=== PATIENT | female | born 1985 | race Caucasian/White ===

== ENCOUNTER 2016-05-18 10:59 | Day surgery (SDC) | payer OTHER ==
[~2016-05-18] VITALS: Ht 170.2 cm; Wt 98.9 kg
[~2016-05-18 10:59] MED LIST: HYDR-3989 PO; LEVO50TA11 PO; LIDOCAINE 1% (10mg/ml) 2ml SDV INJ ONE; LR 1,000 ML IV SCH; ONDA4TAB10 PO; [UNRECOGNIZED DRUG - CODE] PO
--- OUTSIDE RECORDS SUMMARY | 2016-05-18 11:04 | XMS REPORT | Summary of Care ---
Author Author Logan Beach D.O. Organization Unknown Address [address], [place] [id number] Phone Unavailable Care Team Providers Care Manager Product Design Name Role Phone Logan Beach D.O. Unavailable Unavailable [id number] LABORER [employer] BARN, Crystal Unavailable Unavailable Logan Beach PP Unavailable Unavailable Unavailable Functional Status Functional Status Health Issues* Name Dates Details Functional status health issues are not documented Status: Cognitive Status Health Issues* Name Dates Details Cognitive status health issues are not documented Status: Problems Name Dates Details Examination for school or camp (V70.3, Z02.9) Status: Active Hypothyroidism (244.9, E03.9) Status: Active Conjunctivitis of both eyes (372.30, H10.9) Status: Active Abnormal glucose (790.29, R73.09) Status: Active Migraine (346.90, G43.909) Status: Active Acute bronchitis (466.0, J20.9) Status: Active Acute sinusitis (461.9, J01.90) Status: Active Acne (706.1, L70.9) Status: Active control counseling (V25.09, Z30.9) Status: Active Dysfunctional uterine bleeding (626.8, N93.8) Status: Active Diverticulosis of large intestine without hemorrhage (562.10, K57.30) Status: Active Bloody stools (578.1, K92.1) Status: Active Colon cancer screening (V76.51, Z12.11) Status: Active Lower Back Pain Chronic Status: Active Loss Of Hair From Head Status: Active Obesity (278.00, E66.9) Status: Active Occult blood in stools (792.1, R19.5) Status: Active Acute otitis media (382.9, H66.90) Status: Active Medications Name Dates Details Fluticasone Propionate 50 MCG/ACT Nasal Suspension USE 1 TO 2 SPRAYS IN EACH NOSTRIL ONCE DAILY. Quantity: 1 Brookh-Bel Rinaldi LABORER CAR BARN* Started 01-Mar-2014 Batnpy24 GM Bottle Lomedia 24 FE 1-20 MG-MCG(24) Oral Tablet TAKE 1 TABLET DAILY. * Quantity: 1 Refills: 3 Logan Beach D.O.* Started 24-Apr-2014 [id number] Tablet Disp Pack (3 Disp Packs) Amoxicillin 500 MG Oral Capsule Take 1 capsule twice daily * Quantity: 60 Refills: 5 Logan Beach D.O.* Started ActivePhentermine HCl - 37.5 MG Oral Capsule TAKE 1 CAPSULE DAILY.WT LOSS * Quantity: 30 Refills: 0 Logan Beach D.O.* Started ActiveSenna S 8.6-50 MG Oral Tablet TAKE 1 TABLET Bedtime * Quantity: 30 Refills: 0 Logan Beach D.O.* Started 13-Nov-2014 Active Allergies and Adverse Reactions Name Dates Details No Known Drug Allergies Status: Active Past Medical History Name Dates Details History of acute sinusitis (V12.69, Z87.09) Status: Resolved Procedures Procedure Dates Details Procedures not documented Immunization Name Dates Details DTP Administered on:1986 OPV Administered on:1986 OPV Administered on:1986 DTP Administered on:1986 DTP Administered on: OPV Administered on: MMR Administered on:03-May-1987 HIB Administered on:07-May-1988 OPV Administered on:07-May-1988 DTaP Administered on:07-May-1988 OPV Administered on: DTaP Administered on: MMR Administered on: Hepatitis B Administered on:15-Sep-1992 Hepatitis B Administered on:15-Oct-1992 Hepatitis B Administered on: PPD Administered on: Influenza Administered on:20-Nov-1995 DT Administered on: PPD Lot #: [id number] Administered on:13-Jul-2011 Tdap (Adacel) Administered on:13-Jul-2011 Social History Name Dates Details Smoking Status* Never smoker Vital Signs Date Test Result Details No Known Vitals to report Results Date Description Value Details Results not documented Plan of Care Planned Observations* Name Dates Details Planned Goals not documented Goal Planned Encounters* Appointment; Provider: Feliciano Stewart On 13-Dec-2012 13:30 Instructions * Instructions not documented Encounters Appointment; Mor Lawton Encounter Diagnosis: Problem not documented On 28-Nov-2014 09:00 Appointment; Cecy Linton Encounter Diagnosis: Problem not documented On 28-Nov-2014 08:30 Appointment; Logan Beach Encounter Diagnosis: Problem not documented On 26-Nov-2014 07:45 Appointment; Logan Beach Encounter Diagnosis: Problem not documented On 13-Nov-2014 15:15 Appointment; Logan Beach Encounter Diagnosis: Problem not documented On 23-Oct-2014 13:00 Appointment; Logan Beach Encounter Diagnosis: Problem not documented On 18-Sep-2014 07:30 Appointment; Logan Beach Encounter Diagnosis: Problem not documented On 07:00 Appointment; Logan Beach Encounter Diagnosis: Problem not documented On 13:00 Appointment; Logan Beach Encounter Diagnosis: Problem not documented On 24-Apr-2014 13:15 Appointment; Bel Nolan Encounter Diagnosis: Problem not documented On 16-Apr-2014 12:05 Appointment; Bel Nolan Encounter Diagnosis: Problem not documented On 01-Mar-2014 13:35 Appointment; Logan Beach Encounter Diagnosis: Problem not documented On 21-Nov-2013 10:15 Appointment; Feliciano Stewart Encounter Diagnosis: Problem not documented On 26-Sep-2013 09:45 Appointment; Dana James Encounter Diagnosis: Problem not documented On 26-Sep-2013 09:45 Appointment; Logan Beach Encounter Diagnosis: Problem not documented On 19-Sep-2013 09:45
--- OUTSIDE RECORDS SUMMARY | 2016-05-18 11:05 | XMS REPORT | Summary of Care ---
Author Author Logan Beach D.O. Organization Unknown Address [address], [place] [id number] Phone Unavailable Care Team Providers Care Pyridine Recovery Operator Name Role Phone Logan Beach D.O. Unavailable Unavailable Logan eBach PP Unavailable Unavailable Unavailable Functional Status Functional Status Health Issues* Name Dates Details Functional status health issues are not documented Status: Cognitive Status Health Issues* Name Dates Details Cognitive status health issues are not documented Status: Problems Name Dates Details Loss Of Hair From Head Status: Active Lower Back Pain Chronic Status: Active Examination for school or camp (V70.3) Status: Active Hypothyroidism (244.9, E03.9) Status: Active Conjunctivitis of both eyes (372.30, H10.9) Status: Active Abnormal glucose (790.29, R73.09) Status: Active Migraine (346.90, G43.909) Status: Active Acute sinusitis (461.9, J01.90) Status: Active Acne (706.1, L70.9) Status: Active control counseling (V25.09, Z30.9) Status: Active Dysfunctional uterine bleeding (626.8, N93.8) Status: Active Occult blood in stools (792.1, R19.5) Status: Active Diverticulosis of large intestine without hemorrhage (562.10, K57.30) Status: Active Bloody stools (578.1, K92.1) Status: Active Colon cancer screening (V76.51, Z12.11) Status: Active UTI (urinary tract infection), bacterial (599.0, N39.0) Status: Active Obesity (278.00, E66.9) Status: Active Dysuria (788.1, R30.0) Status: Active Medications Name Dates Details Phentermine HCl - 37.5 MG Oral Tablet TAKE 1 TABLET DAILY DIRECTEDDX: WT LOSS Quantity: 30 Logan Beach D.O.* Started 19-May-2015 ActiveMeloxicam 7.5 MG Oral Tablet Take 1 tablet daily * Quantity: 30 Refills: 5 Logan Beach D.O.* Started 19-May-2015 ActiveCiprofloxacin HCl - 500 MG Oral Tablet TAKE 1 TABLET TWICE DAILY. * Quantity: 14 Refills: 0 Logan Beach D.O.* Started 05-Jun-2015 Active Allergies and Adverse Reactions Name Dates Details No Known Drug Allergies Status: Active Past Medical History Name Dates Details History of acute sinusitis (V12.69, Z87.09) Status: Resolved Procedures Procedure Dates Details Urinalysis, reflex to Micro and Culture ([facility]) 8016 Ordered:May-2015 Immunization Name Dates Details DTP Administered on:1986 [...] on:20-Nov-1995 DT Administered on: PPD Lot #: [id number] Administered on:13-Jul-2011 Tdap (Adacel) Administered on:13-Jul-2011 Social History Name Dates Details Smoking Status* Never smoker Vital Signs Date Test Result Details 19-May-2015 15:17 Temperature 97.8 f Status: Heart Rate 70 /min Status: Weight 200.25 lb Status: Body Mass Index Calculated 31.84 kg/m2 Status: Body Surface Area Calculated 2.01 m2 Status: Results Date Description Value Details 26-May-2015 14:04 Urinalysis, reflex to Micro and Culture ([facility]) 8016 pH 6.0 (Better) Range: 5.0-7.5 SP GRAVITY 1.025 (Better) Range: 1.010-1.030 APPEARANCE Cloudy (Abnormal) Range: Clear COLOR Yellow (Better) Range: Straw-Yellow PROTEIN Negative mg/dL (Better) Range: Negative-Trace GLUCOSE Negative mg/dL (Better) Range: Negative KETONES Negative mg/dL (Better) Range: Negative BILIRUBIN Negative (Better) Range: Negative BLOOD +/- (Abnormal) Range: Negative UROBIL 0.2 EU/dL (Better) Range: 0.2-1.0 NITRITE Negative (Better) Range: Negative LEUKOCYTES 1+ (Abnormal) Range: Negative 15:38 Urine Microscopic UMIC WBC 6-10 /HPF (Abnormal) Range: 0-5 Comments: Specimen referred to Microbiology for Culture----- MUCUS 2+ /LPF (Better) Range: Negative-2+ BACTERIA 2+ /HPF (Abnormal) Range: Negative-Trace EPITH 11-20 /HPF (Abnormal) Range: 0-10 28-May-2015 07:41 URINE CULTURE [id number] Comments: [employer] performed at: [facility], [address] [place], [address], Carbon Setter: Daniel Kirby D.O., MPHQuest Collection Date/Time: [id number] Results Received Date/Time: [id number] Reported Date/Time: [id number] CULTURE, URINE, ROUTINE SEE NOTE (Better) Comments: CULTURE, URINE, ROUTINE MICRO NUMBER: [id number] TEST STATUS: FINAL SPECIMEN SOURCE : URINE, CLEAN CATCH SPECIMEN QUALITY: ADEQUATE RESULT: Multiple organisms present, each less than 10,000 CFU/mL. These organisms, commonly found on external and internal genitalia, are considered to be colonizers. No further testing performed.[RI]----- 03-Jun-2015 16:40 Urinalysis, reflex to Micro and Culture ([facility]) 8016 pH 8.0 (Abnormal) Range: 5.0-7.5 SP GRAVITY 1.010 (Better) Range: 1.010-1.030 APPEARANCE Cloudy (Abnormal) Range: Clear COLOR Yellow (Better) Range: Straw-Yellow PROTEIN 15 mg/dL (Abnormal) Range: Negative-Trace GLUCOSE Negative mg/dL (Better) Range: Negative KETONES Negative mg/dL (Better) Range: Negative BILIRUBIN Negative (Better) Range: Negative BLOOD 1+ (Abnormal) Range: Negative UROBIL 0.2 EU/dL (Better) Range: 0.2-1.0 NITRITE Negative (Better) Range: Negative LEUKOCYTES 3+ (Abnormal) Range: Negative 17:23 Urine Microscopic UMIC WBC 0-2 /HPF (Better) Range: 0-5 RBC 3-5 /HPF (Abnormal) Range: 0-2 MUCUS 1+ /LPF (Better) Range: Negative-2+ BACTERIA 3+ /HPF (Abnormal) Range: Negative-Trace Comments: Specimen referred to Microbiology for Culture----- EPITH 11-20 /HPF (Abnormal) Range: 0-10 U AMORPH 1+ /HPF (Better) 05-Jun-2015 09:23 URINE CULTURE [id number] Comments: [employer] performed at: [facility], [address] [place], [address], Carbon Setter: Daniel Kirby D.O., MPHQuest Collection Date/Time: [id number] Results Received Date/Time: [id number] Reported Date/Time: [id number] CULTURE, URINE, ROUTINE SEE NOTE (Better) Comments: CULTURE, URINE, ROUTINE MICRO NUMBER: [id number] TEST STATUS: FINAL SPECIMEN SOURCE : URINE SPECIMEN QUALITY: ADEQUATE RESULT: Multiple organisms present, each less than 10,000 CFU/mL. These organisms, commonly found on external and internal genitalia, are considered to be colonizers. No further testing performed.[ RI]----- Plan of Care Planned Observations* Name Dates Details Planned Goals not documented Goal Planned Encounters* Appointment; Provider: Feliciano Stewart On 13-Dec-2012 13:30 Instructions * Instructions not documented Encounters Appointment; Logan Beach Encounter Diagnosis: Problem not documented On 19-May-2015 15:15 Appointment; Mor Lawton Encounter Diagnosis: Problem not [...] not documented On 18-Sep-2014 07:30 Appointment; Logan Becah Encounter Diagnosis: Problem not documented On 07:00 [...]
--- OUTSIDE RECORDS SUMMARY | 2016-05-18 11:05 | XMS REPORT | Summary of Care ---
Author Author Logan Beach D.O. Organization Unknown Address [address], [place] [id number] Phone Unavailable Care Team Providers Care Rotary Drum Dyer Name Role Phone Logan Beach D.O. Unavailable Unavailable Logan Beach PP Unavailable Unavailable [...] Refills: 5 Logan Beach D.O.* Started 19-May-2015 Active Allergies and Adverse Reactions Name Dates [...] on:20-Nov-1995 DT Administered on: PPD Lot #: [id number] Administered on:13-Jul-2011 Tdap (Adacel) Administered on:13-Jul-2011 Social History Name Dates Details Smoking Status* Never smoker Vital Signs Date Test Result Details 19-May-2015 15:17 Temperature 97.8 f Status: Heart Rate 70 /min Status: Weight 200.25 lb Status: Body Mass Index Calculated 31.84 kg/m2 Status: Body Surface Area Calculated 2.01 m2 Status: Results Date Description Value Details 26-May-2015 14:04 Urinalysis, reflex to Micro and Culture ([facility]) 8016 pH 6.0 (Better) Range: 5.0-7.5 SP [...] (Abnormal) Range: 0-10 28-May-2015 07:41 URINE CULTURE [id number] Comments: [employer] performed at: [facility], [address] [facility], [place], [address], Fire Marshal Refinery: Daniel Kirby D.O., MPHQuest Collection Date/Time: [id number] Results Received Date/Time: [id number] Reported Date/Time: [id number] CULTURE, URINE, ROUTINE SEE NOTE (Better) Comments: CULTURE, URINE, ROUTINE MICRO NUMBER: [id number] TEST STATUS: FINAL SPECIMEN SOURCE : URINE, CLEAN CATCH SPECIMEN QUALITY: ADEQUATE RESULT: Multiple organisms present, each less than 10,000 CFU/mL. These organisms, commonly found on external and internal genitalia, are considered to be colonizers. No further testing performed.[NC]----- 03-Jun-2015 16:40 Urinalysis, reflex to Micro and Culture ([facility]) 8016 pH 8.0 (Abnormal) Range: 5.0-7.5 SP [...] Range: 0-10 U AMORPH 1+ /HPF (Better) Plan of Care Planned Observations* Name Dates [...]
--- OUTSIDE RECORDS SUMMARY | 2016-05-18 11:05 | XMS REPORT | Summary of Care ---
Author Author Logan Beach D.O. Organization Unknown Address [address], [place] [id number] Phone Unavailable Care Team Providers Care Magistrate Name Role Phone Logan Beach D.O. Unavailable [...] Details Urinalysis, reflex to Micro and Culture ([facility]) 8016 Ordered:May-2015 Immunization Name Dates Details DTP [...] on:20-Nov-1995 DT Administered on: PPD Lot #: [id number] Administered on:13-Jul-2011 Tdap (Adacel) Administered on:13-Jul-2011 Social History Name Dates Details Smoking Status* Never smoker Vital Signs Date Test Result Details 19-May-2015 15:17 Temperature 97.8 f Status: Heart Rate 70 /min Status: Weight 200.25 lb Status: Body Mass Index Calculated 31.84 kg/m2 Status: Body Surface Area Calculated 2.01 m2 Status: Results Date Description Value Details 26-May-2015 14:04 Urinalysis, reflex to Micro and Culture ([facility]) 8016 pH 6.0 (Better) Range: 5.0-7.5 [...] (Abnormal) Range: 0-10 28-May-2015 07:41 URINE CULTURE [id number] Comments: [employer] performed at: [facility] [address] [place], [address], Field Service Poultry Technician: Daniel Kirby D.O., MPHQuest Collection Date/Time: [id number] Results Received Date/Time: [id number] Reported Date/Time: [id number] CULTURE, URINE, ROUTINE SEE NOTE (Better) Comments: CULTURE, URINE, ROUTINE MICRO NUMBER: [id number] TEST STATUS: FINAL SPECIMEN SOURCE : URINE, CLEAN CATCH SPECIMEN QUALITY: ADEQUATE RESULT: Multiple organisms present, each less than 10,000 CFU/mL. These organisms, commonly found on external and internal genitalia, are considered to be colonizers. No further testing performed.[VT]----- Plan of Care Planned Observations* Name Dates [...]
--- OUTSIDE RECORDS SUMMARY | 2016-05-18 11:05 | XMS REPORT | Summary of Care ---
Author Author Logan Beach D.O. Organization Unknown Address [address], [place] [address] Phone Unavailable Care Team Providers Care Athletics Teacher Name Role Phone Logan Beach D.O. Unavailable Unavailable Logan Beach Unavailable Unavailable Unavailable Unavailable Functional Status Name Dates Details Functional status health issues are not documented Status: Name Dates Details Cognitive status health issues [...] tract infection), bacterial (599.0, N39.0) Status: Active Dysuria (788.1, R30.0) Status: Active Obesity (278.00, E66.9) Status: Active Medications Name Dates Details Phentermine HCl - 37.5 MG Oral Tablet TAKE 1 TABLET DAILY DIRECTEDDX: WT LOSS Quantity: 30 Logan Beach D.O. * Start 19-May-2015 Active Meloxicam 7.5 MG Oral Tablet Take 1 tablet daily * Quantity: 30 Refills: 5 Beach D.O., Logan * Start 19-May-2015 Active Ciprofloxacin HCl - 500 MG Oral Tablet TAKE 1 TABLET TWICE DAILY. * Quantity: 14 Refills: 0 Logan Beach D.O. * Start 05-Jun-2015 Active Allergies and Adverse Reactions Name Dates Details No Known Drug Allergies (Allergy) Status: Active Past Medical History Name Dates Details History of acute sinusitis (V12.69, Z87.09) Status: Resolved Procedures Procedure Dates Details GLUCOSE 1100 Ordered: 10-Mar-2016 FREE T4 3604 Ordered: 10-Mar-2016 THYROID STIM. HORMONE 3602 Ordered: 10-Mar-2016 Immunization Name Dates Details DTP on: 1986 OPV on: 1986 OPV on: 1986 DTP on: 1986 DTP on: OPV on: MMR on: 03-May-1987 HIB on: 07-May-1988 OPV on: 07-May-1988 DTaP on: 07-May-1988 OPV on: DTaP on: MMR on: Hepatitis B on: 15-Sep-1992 Hepatitis B on: 15-Oct-1992 Hepatitis B on: PPD on: Influenza on: 20-Nov-1995 DT on: PPD Lot #: [id number] on: 13-Jul-2011 Tdap (Adacel) on: 13-Jul-2011 Social History Name Dates Details - Status: Name Dates Details Never smoker Vital Signs Date Test Result Details No Known Vitals to report Results Date Description Value Details Results not documented Plan of Care Name Dates Details Planned Observations Planned Goals not documented Planned Encounters Appointment; Provider: Logan Beach D.O. On 15-Mar-2016 10:15 Interventions Provided Labs/Procedures/Imaging* FREE T4 3604; To be Done: 10 Mar 2016 * GLUCOSE 1100; To be Done: 10 Mar 2016 * THYROID STIM. HORMONE 3602; To be Done: 10 Mar 2016 Instructions Name Dates Details Instructions not documented Encounters Appointment; Logan Beach D.O. Encounter Diagnosis: Problem not documented On 07:45 Appointment; Logan Beach D.O. Encounter Diagnosis: Problem not documented On 19-May-2015 15:15 Appointment; Mor Lawton M.D. Encounter Diagnosis: Problem not documented On 28-Nov-2014 09:00 Appointment; Cecy Linton Encounter Diagnosis: Problem not documented On 28-Nov-2014 08:30 Appointment; Logan Beach D.O. Encounter Diagnosis: Problem not documented On 26-Nov-2014 07:45 Appointment; Logan Beach D.O. Encounter Diagnosis: Problem not documented On 13-Nov-2014 15:15 Appointment; Logan Beach D.O. Encounter Diagnosis: Problem not documented On 23-Oct-2014 13:00 Appointment; Logan Beach D.O. Encounter Diagnosis: Problem not documented On 18-Sep-2014 07:30 Appointment; Logan Beach D.O. Encounter Diagnosis: Problem not documented On 07:00 Appointment; Logan Beach D.O. Encounter Diagnosis: Problem not documented On 13:00 Appointment; Logan Beach D.O. Encounter Diagnosis: Problem not documented On 24-Apr-2014 13:15 Appointment; Bel Nolan A.P.R.N. Encounter Diagnosis: Problem not documented On 16-Apr-2014 12:05
--- OUTSIDE RECORDS SUMMARY | 2016-05-18 11:05 | XMS REPORT | Summary of Care ---
Author Author Logan Beach D.O. Organization Unknown Address [address], [place] [phone] Phone Unavailable Care Team Providers Care Production Counter Name Role Phone Logan Beach D.O. Unavailable [...] Details Urinalysis, reflex to Micro and Culture ([facility]) 8016 Ordered: Immunization Name Dates Details DTP Administered on:1986 [...] on:20-Nov-1995 DT Administered on: PPD Lot #: [id number] Administered on:13-Jul-2011 Tdap (Adacel) Administered on:13-Jul-2011 Social History Name Dates Details Smoking Status* Never smoker Vital Signs Date Test Result Details 19-May-2015 15:17 Temperature 97.8 f Status: Heart Rate 70 /min Status: Weight 200.25 lb Status: Body Mass Index Calculated 31.84 kg/m2 Status: Body Surface Area Calculated 2.01 m2 Status: Results Date Description Value Details Results not [...]
--- OUTSIDE RECORDS SUMMARY | 2016-05-18 11:05 | XMS REPORT | Summary of Care ---
Author Author Logan Beach D.O. Organization Unknown Address [address], [place] [id number] Phone Unavailable Care Team Providers Care Belt Loop Machine Operator Name Role Phone Logan Beach D.O. [...] not documented Immunization Name Dates Details DTP on: 1986 OPV on: 1986 OPV on: 1986 DTP on: 1986 DTP on: OPV on: MMR on: 03-May-1987 HIB on: 07-May-1988 OPV on: 07-May-1988 DTaP on: 07-May-1988 OPV on: DTaP on: MMR on: Hepatitis B on: 15-Sep-1992 Hepatitis B on: 15-Oct-1992 Hepatitis B on: PPD on: Influenza on: 20-Nov-1995 DT on: PPD Lot #: [id number] on: 13-Jul-2011 Tdap (Adacel) on: 13-Jul-2011 Social History Name Dates Details - Status: Name Dates Details Never smoker Vital Signs Date Test Result Details No Known Vitals to report Results Date Description Value Details 11-Mar-2016 09:31 GLUCOSE 1100 Comments: Fastin hours GLUCOSE 93 mg/dL Range: 70-100 09:43 FREE T4 3604 Comments: Fastin hours FREE T4 0.82 ng/dL Range: 0.80-1.67 09:43 THYROID STIM. HORMONE 3602 Comments: Fastin hours THYROID STIM. HORMONE 2.236 uIU/mL Range: 0.550-4.780 Comments: No established reference ranges for infants and children <2 years of age----- Plan of Care Name Dates Details Planned Observations Planned Goals not documented Planned Encounters Appointment; Provider: Logan Beach D.O. On 15-Mar-2016 10:15 Instructions Name Dates Details Instructions not documented Encounters Appointment; Logan Beach D.O. Encounter Diagnosis: Problem not documented On 07:45 Appointment; Logan Beach D.O. Encounter Diagnosis: Problem not documented On 19-May-2015 15:15 Appointment; Mor Lawton M.D. Encounter Diagnosis: Problem not documented On 28-Nov-2014 09:00 Appointment; Royer, Cecy Encounter Diagnosis: Problem not documented On 28-Nov-2014 [...]
--- OUTSIDE RECORDS SUMMARY | 2016-05-18 11:05 | XMS REPORT | Summary of Care ---
Author Author Logan Beach D.O. Organization Unknown Address [address], [place] [id number] Phone Unavailable Care Team Providers Care Group Billing Coordinator Name Role Phone Logan Beach D.O. 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8, N93.8) Status: Active Occult blood in stools (792.1, R19.5) Status: Active Bloody stools (578.1, K92.1) Status: Active Medications Name Dates Details Fluticasone Propionate 50 MCG/ACT Nasal Suspension USE 1 TO 2 SPRAYS IN EACH NOSTRIL ONCE DAILY. Quantity: 1 Brookh-Gentry Crystal CASH MANAGEMENT SPECIALIST* Started 01-Mar-2014 Tnutap97 GM Bottle Lomedia 24 FE 1-20 MG-MCG(24) Oral Tablet TAKE 1 TABLET DAILY. * Quantity: 1 Refills: 3 Logan Beach D.O.* Started 24-Apr-2014 Fqggma72 Tablet Disp Pack (3 Disp Packs) Amoxicillin 500 MG Oral Capsule Take 1 capsule twice daily * Quantity: 60 Refills: 5 Logan Beach D.O.* Started ActivePhentermine HCl - 30 MG Oral Capsule TAKE 1 CAPSULE DAILYDX: WT LOSS * Quantity: 30 Refills: 0 Logan Beach D.O.* Started ActiveSenna S 8.6-50 MG Oral Tablet TAKE 1 TABLET Bedtime * Quantity: 30 Refills: 0 Logan Beach D.O.* Started 13-Nov-2014 Active Allergies and Adverse Reactions Name Dates Details No Known Drug Allergies Status: Active Past Medical History Name Dates Details History of acute sinusitis (V12.69, Z87.09) Status: Resolved Procedures Procedure Dates Details Colonoscopy- Screening or Dx Pendin13-Nov-2014 STOOL OCCULT BLOOD PANEL (x3) 8210 Ordered:12-Nov-2014 Immunization Name Dates Details DTP Administered on:1986 [...] on:20-Nov-1995 DT Administered on: PPD Lot #: [id number] Administered on:13-Jul-2011 Tdap (Adacel) Administered on:13-Jul-2011 Social History Name Dates Details Smoking Status* Never smoker Vital Signs Date Test Result Details 13-Nov-2014 15:16 BP Systolic 135 mm[Hg] Status: BP Diastolic 70 mm[Hg] Status: Heart Rate 88 /min Status: Weight 217 lb Status: Body Mass Index Calculated 34.5 kg/m2 Status: Body Surface Area Calculated 2.08 m2 Status: 23-Oct-2014 13:07 BP Systolic 118 mm[Hg] Status: BP Diastolic 70 mm[Hg] Status: Heart Rate 80 /min Status: Weight 215 lb Status: Body Mass Index Calculated 34.18 kg/m2 Status: Body Surface Area Calculated 2.07 m2 Status: Results Date Description Value Details 13-Nov-2014 11:02 CBC w/ Auto Diff 7150 WBC 14.0 K/uL (Above high threshold) Range: 4.5-11.0 RBC 4.29 mil/uL (Better) Range: 3.60-5.00 HGB 12.9 g/dL (Better) Range: 12.0-16.0 HCT 38.5 % (Better) Range: 36.0-48.0 MCV 89.7 fL (Better) Range: 80.0-99.0 MCH 30.0 pg (Better) Range: 27.3-32.5 MCHC 33.4 % (Better) Range: 32.0-36.0 RDW 12.8 % (Better) Range: 11.6-14.8 PLATELETS 262 K/uL (Better) Range: 150-400 MPV 8.4 fL (Better) Range: 6.0-11.0 %NEUTRO 68.1 % (Better) Range: 37.0-80.0 %LYMPHS 26.5 % (Better) Range: 13.0-50.0 %MONO 3.1 % (Better) Range: 0.0-12.0 %EOS 0.7 % (Better) Range: 0.0-7.0 %BASO 0.5 % (Better) Range: 0.0-2.5 %RILEY 1.1 % (Better) Range: 0.0-5.0 NEUTRO 9.6 K/uL (Above high threshold) Range: 2.0-6.9 LYMPHS 3.7 K/uL (Above high threshold) Range: 0.6-3.4 MONOS 0.4 K/uL (Better) Range: 0.0-0.9 EOS 0.1 K/uL (Better) Range: 0.0-0.7 BASO 0.1 K/uL (Better) Range: 0.0-0.2 Plan of Care Planned Observations* Name Dates [...]
--- OUTSIDE RECORDS SUMMARY | 2016-05-18 11:05 | XMS REPORT | Summary of Care ---
Author Author Bel Nolan APRN Organization Unknown Address [address], [place] [id number] Phone Unavailable Care Team Providers Care Winch Derrick Operator Name Role Phone Logan Beach D.O. Unavailable Unavailable Bel Nolan APRN Unavailable Unavailable Danila Stewart M.D. 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 Lower Back Pain Chronic Status: Active Acne (706.1, L70.9) Status: Active Examination for school or camp (V70.3, Z02.9) Status: Active Hypothyroidism (244.9, E03.9) Status: Active Conjunctivitis of both eyes (372.30, H10.9) Status: Active Abnormal glucose (790.29, R73.09) Status: Active Migraine (346.90, G43.909) Status: Active Obesity (278.00, E66.9) Status: Active Acute bronchitis (466.0, J20.9) Status: Active Acute otitis media (382.9, H66.90) Status: Active Acute sinusitis (461.9, J01.90) Status: Active Medications Name Dates Details Meloxicam 7.5 MG Oral Tablet take one tablet by mouth every day Quantity: 30 Logan Beach D.O.* Started 21-Sep-2011 ActiveAczone 5 % External Gel APPLY THIN LAYER TO FACE AT BEDTIME * Quantity: 30 Refills: 0 Feliciano Stewart M.D.* Started 07-Oct-2011 ActiveTopiramate 25 MG Oral Tablet TAKE 2 TABLET IN THE MORNING AND 1 TABLETS AT BEDTIME. * Quantity: 90 Refills: 3 Logan Beach D.O.* Started 19-Sep-2013 ActiveGentamicin Sulfate 0.3 % Ophthalmic Solution INSTILL 2 DROP 4 times daily Both Eyes Until Clear * Quantity: 1 Refills: 0 Logan Beach D.O.* Started 19-Sep-2013 Active5 ML Bottle Fluticasone Propionate 50 MCG/ACT Nasal Suspension USE 1 TO 2 SPRAYS IN EACH NOSTRIL ONCE DAILY. * Quantity: 1 Refills: 0 Ovidio Bel KAPOK AND COTTON MACHINE OPERATOR* Started 01-Mar-2014 Nifbyd38 GM Bottle Amoxicillin-Pot Clavulanate 875-125 MG Oral Tablet 1 tablet BID x 10 days * Quantity: 20 Refills: 0 Bel Nolan KAPOK AND COTTON MACHINE OPERATOR* Started 16-Apr-2014 Ended 26-Apr-2014 ActiveAntipyrine-Benzocaine 5.4-1.4 % Otic Solution PLACE 2 TO 3 DROPS IN THE AFFECTED EAR(S) EVERY 2 TO 3 HOURS NEEDED FOR EAR PAIN * Quantity: 1 Refills: 0 Bel Nolan APRN* Started 16-Apr-2014 Ended 17-Apr-2014 Qmimjf58 ML Bottle Allergies and Adverse Reactions Name Dates Details [...] on:20-Nov-1995 DT Administered on: PPD Lot #: [id number] Administered on:13-Jul-2011 Tdap (Adacel) Administered on:13-Jul-2011 Social History Name Dates Details Smoking Status* Never smoker Vital Signs Date Test Result Details 16-Apr-2014 12:09 Heart Rate 88 /min Status: Temperature 98.8 f Status: Weight 235 lb Status: O2 SAT 97 % Status: Body Mass Index Calculated 37.36 kg/m2 Status: Body Surface Area Calculated 2.15 m2 Status: Results Date Description Value Details Results not documented Plan of Care Planned Observations* Name Dates Details Planned Goals not documented Goal Planned Encounters* Appointment; Provider: Feliciano Stewart On 13-Dec-2012 13:30 Instructions * Instructions not documented Encounters Appointment; Bel Nolan Encounter Diagnosis: Problem not [...]
--- OUTSIDE RECORDS SUMMARY | 2016-05-18 11:05 | XMS REPORT | Summary of Care ---
Author Author Jered Manriquez, [facility] Unknown Address [address] [place], [place] [id number] Phone Unavailable Care Team Providers Care Cable Operator Name Role Phone Logan Beach D.O. Unavailable Unavailable Smarsh-Kutilek OAKES MACHINE OPERATOR, Crystal Unavailable Unavailable Logan Beach PP Unavailable [...] blood in stools (792.1, R19.5) Status: Active Obesity (278.00, E66.9) Status: Active Bloody stools (578.1, K92.1) Status: Active Colon cancer screening (V76.51, Z12.11) Status: Active Diverticulosis of large intestine without hemorrhage (562.10, K57.30) Status: Active Medications Name Dates Details Fluticasone Propionate 50 MCG/ACT Nasal Suspension USE 1 TO 2 SPRAYS IN EACH NOSTRIL ONCE DAILY. Quantity: 1 Smarsh-Kutilek, Crystal OAKES MACHINE OPERATOR* Started 16-Eleuterio-2015 Vrauja10 GM Bottle Lomedia 24 FE 1-20 MG-MCG(24) Oral Tablet TAKE 1 TABLET DAILY. * Quantity: 1 Refills: 3 Logan Beach D.O.* Started 24-Apr-2014 Avnokx45 Tablet Disp Pack (3 Disp Packs) Amoxicillin [...] Procedure Dates Details Colonoscopy- Screening or Dx Ordered:13-Nov-2014 STOOL OCCULT BLOOD PANEL (x3) 8210 Ordered:12-Nov-2014 [...] on:20-Nov-1995 DT Administered on: PPD Lot #: [id number] Administered on:13-Jul-2011 Tdap (Adacel) Administered on:13-Jul-2011 Social History Name Dates Details Smoking Status* Never smoker Vital Signs Date Test Result Details 26-Nov-2014 14:59 BP Systolic 126 mm[Hg] Status: BP Diastolic 69 mm[Hg] Status: Weight 216.25 lb Status: Body Mass Index Calculated 34.38 kg/m2 Status: Body Surface Area Calculated 2.08 m2 Status: 13-Nov-2014 15:16 BP Systolic 135 mm[Hg] Status: BP Diastolic 70 mm[Hg] Status: Heart Rate 88 /min Status: Weight 217 lb Status: Body Mass Index Calculated 34.5 kg/m2 Status: Body Surface Area Calculated 2.08 m2 Status: Results Date Description Value Details [...] 0.0-0.7 BASO 0.1 K/uL (Better) Range: 0.0-0.2 26-Nov-2014 16:29 SERUM TEST 8020 SERUM TEST Negative (Better) Range: Negative Comments: Internal Control: Acceptable----- Plan of Care Planned Observations* Name Dates [...]
--- OUTSIDE RECORDS SUMMARY | 2016-05-18 11:05 | XMS REPORT | Summary of Care ---
Author Author Logan Beach D.O. Organization Unknown Address [address], [place] [address] Phone Unavailable Care Team Providers Care Zigzag Tunnel Elastic Operator Name Role Phone Logan Beach D.O. Unavailable Unavailable Ovidio HIGH SCHOOL ART TEACHER, Crystal Unavailable Unavailable Danial Stewart M.D. Unavailable Unavailable Logan Beach PP [...] Active Acute sinusitis (461.9, J01.90) Status: Active Obesity (278.00, E66.9) Status: Active Acne (706.1, L70.9) Status: Active Dysfunctional uterine bleeding (626.8, N93.8) Status: Active control counseling (V25.09, Z30.9) Status: Active Medications Name Dates Details Aczone 5 % External Gel APPLY THIN LAYER TO FACE AT BEDTIME Quantity: 30 Feliciano Stewart M.D.* Started 07-Oct-2011 ActiveTopiramate 25 MG Oral Tablet TAKE 2 TABLET IN THE MORNING AND 1 TABLETS AT BEDTIME. * Quantity: 90 Refills: 3 Logan Beach D.O.* Started 19-Sep-2013 ActiveFluticasone Propionate 50 MCG/ACT Nasal Suspension USE 1 TO 2 SPRAYS IN EACH NOSTRIL ONCE DAILY. * Quantity: 1 Refills: 0 Bel Nolan APRN* Started 01-Mar-2014 Pvreqh98 GM Bottle Lomedia 24 FE 1-20 MG-MCG(24) Oral Tablet TAKE 1 TABLET DAILY. * Quantity: 1 Refills: 3 Logan Beach D.O.* Started 24-Apr-2014 Javuhx48 Tablet Disp Pack (3 Disp Packs) Amoxicillin 500 MG Oral Capsule Take 1 capsule twice daily * Quantity: 60 Refills: 3 Logan Beach D.O.* Started ActivePhentermine HCl - 15 MG Oral Capsule TAKE 1 CAPSULE DAILY. * Quantity: 30 Refills: 0 Logan Beach D.O.* Started Active Allergies and Adverse Reactions Name Dates [...] on:20-Nov-1995 DT Administered on: PPD Lot #: [id number] Administered on:13-Jul-2011 Tdap (Adacel) Administered on:13-Jul-2011 Social History Name Dates Details Smoking Status* Never smoker Vital Signs Date Test Result Details 12:55 BP Systolic 112 mm[Hg] Status: BP Diastolic 64 mm[Hg] Status: Heart Rate 84 /min Status: Weight 225 lb Status: Body Mass Index Calculated 35.77 kg/m2 Status: Body Surface Area Calculated 2.11 m2 Status: Results Date Description Value Details Results not documented Plan of Care Planned Observations* Name Dates Details Planned Goals not documented Goal Planned Encounters* Appointment; Provider: Logan Beach On 23-Oct-2014 13:00 * Appointment; Provider: Feliciano Stewart On 13-Dec-2012 13:30 [...]
--- OUTSIDE RECORDS SUMMARY | 2016-05-18 11:06 | XMS REPORT | Continuity of Care Document ---
Author Author [facility] Organization [facility] Address Unknown Phone Unavailable Allergies Active Description Code Type Severity Reaction Onset Reported/Identified Relationship to Patient Clinical Status Yes No Known Allergies [id number] 3 N/A N/A Medications Problems Date Dx Coded Attending Type Code Diagnosis Diagnosed By 05/13/2016 DAVID WERNER N200 Calculus of kidney 05/13/2016 DAVID WERNER R1032 Left lower quadrant pain 05/13/2016 DAVID WERNER [id number] Personal history of urinary calculi Procedures Results Test Result Range CBC WITH PLATELET AND DIFFERENTIAL - 05/08/16 13:42 SEGS 71.1 % NRG *BASOPHILS 0.8 % NRG *EOSINOPHILS 0.3 % NRG AUTOMATED DIFF PERFORMED NRG *LYMPHOCYTES 20.7 % NRG *MONOCYTES 7.1 % NRG *ABSOLUTE BASOPHILS 0.10 10*3/uL 0.00- 0.20 *ABSOLUTE EOSINOPHILS 0.00 10*3/uL 0.00- 0.50 *ABSOLUTE LYMPHOCYTES 1.70 10*3/uL 1.00- 3.00 *ABSOLUTE MONOCYTES 0.60 10*3/uL 0.30- 1.00 *ABSOLUTE NEUTROPHILS 5.80 10*3/uL 1.80- 7.80 MPV 10.0 fL 7.4-10.4 PLATELETS 185 10*3/uL 159-386 WBC 8.1 10*3/uL 3.6-11.2 RBC 4.73 3.63-4.92 HEMOGLOBIN 14.0 11.0-14.3 HEMATOCRIT 41.8 % 31.2-41.9 MCV 88.4 fL 79.0-98.0 MCH 29.5 pg 27.0-33.0 MCHC 33.4 32.0-36.0 RDW 12.7 % 12.3-17.0 RDWSD 39.4 37.1-47.8 TEST - 05/08/16 13:42 TEST NEGATIVE NEGATIVE COMPREHENSIVE METABOLIC PANEL - 05/08/16 13:42 BILIFUBIN TOTAL 0.50 0.20-1.00 TOTAL PROTEIN 7.3 6.4-8.2 ALBUMIN 4.2 3.4-5.0 *GLOBULIN 3.1 2.3-3.5 *A/G RATIO 1.4 1.5-2.2 ALK PHOS 97 U/L 46-116 ALT (SGPT) 17 U/L 16-63 AST (SGOT) 13 U/L 15-37 GFR ESTIMATION - 05/08/16 13:42 *GFR EST NON AFR SOUTH AFRICAN 86 mL/min NRG *GRFA EST AFR AMER >90 mL/min NRG Encounters ACCT No. Visit Date/Time Discharge Status Pt. Type Provider Facility Loc./Unit Complaint [id number] 05/08/2016 13:14:00 2016 04:27:55 DIS Emergency DAVID WERNER KIDNEY STONE
--- OUTSIDE RECORDS SUMMARY | 2016-05-18 11:06 | XMS REPORT ---
Author Author GENERATED, SYSTEM Organization Unknown Address Unknown Phone Unavailable Care Team Providers Care Rougher Machine Operator Name Role Phone DAVE, TROY PP [phone] Reason For Visit Chief Complaint KIDNEY STONE Social History Functional Status Vital Signs Results Chemistry from 05/08/2016 1:42 PMSODIUM 142 MMOL/L (136-145 MMOL/L) POTASSIUM 3.3 MMOL/L L (3.5-5.1 MMOL/L) CHLORIDE 103 MMOL/L (98-107 MMOL/L) TCO2 28.0 MMOL/L (21.0-32.0 MMOL/L) *ANION GAP 11.0 MMOL/L (8.0-16.0 MMOL/L) BUN 9 MG/DL (7-18 MG/DL) CREATININE 0.90 MG/DL (0.55-1.02 MG/DL) *BUN/CREATININE RATIO 10.0 (9.1-17.0 ) GLUCOSE 97 MG/DL (65-99 MG/DL) *GFR EST NON AFR UZBEK 86 ML/MIN *GFR EST AFR AMER >90 ML/MIN CALCIUM 9.2 MG/DL (8.5-10.1 MG/DL) BILIRUBIN TOTAL 0.50 MG/DL (0.20-1.00 MG/DL) TOTAL PROTEIN 7.3 GM/DL (6.4-8.2 GM/DL) ALBUMIN 4.2 GM/DL (3.4-5.0 GM/DL) *GLOBULIN 3.1 GM/DL (2.3-3.5 GM/DL) *A/G RATIO 1.4 MG/DL L (1.5-2.2 MG/DL) ALK PHOS 97 U/L (46-116 U/L) ALT (SGPT) 17 U/L (16-63 U/L) AST (SGOT) 13 U/L L (15-37 U/L) TEST NEGATIVE (NEGATIVE ) Hematology from 05/08/2016 1:42 PMWBC 8.1 X10e3/UL (3.6-11.2 X10e3/UL) RBC 4.73 X10e6/UL (3.63-4.92 X10e6/UL) HEMOGLOBIN 14.0 G/DL (11.0-14.3 G/DL) HEMATOCRIT 41.8 % (31.2-41.9 %) *MCV 88.4 FL (79.0-98.0 FL) *MCH 29.5 PG (27.0-33.0 PG) *MCHC 33.4 G/DL (32.0-36.0 G/DL) *RDW 12.7 % (12.3-17.0 %) *RDWSD 39.4 (37.1-47.8 ) PLATELET 185 X10e3/UL (159-386 X10e3/UL) *MPV 10.0 FL (7.4-10.4 FL) AUTOMATED DIFF PERFORMED SEGS 71.1 % *LYMPHOCYTES 20.7 % *MONOCYTES 7.1 % *EOSINOPHILS 0.3 % *BASOPHILS 0.8 % *ABSOLUTE NEUTROPHILS 5.80 X10e3/UL (1.80-7.80 X10e3/UL) *ABSOLUTE LYMPHOCYTES 1.70 X10e3/UL (1.00-3.00 X10e3/UL) *ABSOLUTE MONOCYTES 0.60 X10e3/UL (0.30-1.00 X10e3/UL) *ABSOLUTE EOSINOPHILS 0.00 X10e3/UL (0.00-0.50 X10e3/UL) *ABSOLUTE BASOPHILS 0.10 X10e3/UL (0.00-0.20 X10e3/UL) CT Scan from 05/08/2016 2:06 PMCT ABD/PELVIS W/O CONTRAST History: FLANK PAIN . C/O LT FLANK PAIN , HEMATURIA X 1 DAY - PT HAD KIDNEY STONES 1 YEAR AGO. Priors: CT April 13, 2007. 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 Lung bases are clear. Liver: Normal size liver with focal fatty infiltration along the fissure for the ligamentum teres. Spleen: Normal. Pancreas: No discrete mass or inflammatory process. Gallbladder and biliary tract: No radiodense calculus or dilation. Adrenal glands: Normal. Kidneys: There is a 6 millimeter obstructing stone in the distal left ureter at the level of the pelvic brim (3-105). There is resultant moderate upstream hydronephrosis. The right kidney and right collecting system are unremarkable. A small nonspecific hyperdensity is seen in the lower pole of the left kidney (5-34) which is incompletely evaluated. Urinary Bladder: Decompressed and otherwise unremarkable. Aorta: Normal in caliber. No periaortic lymphadenopathy. Bowel and Mesentery: Small and large bowel loops are nondilated. Occasional distal colonic diverticular noted. No findings of appendicitis. Ascites: None. Pelvis Lymphadenopathy: None. Reproductive: Uterus is unremarkable. There is normal physiologic prominence of the ovaries. Osseous Structures: No suspicious findings. Impression: Obstructing 0.6 centimeter calcified stone in the distal left ureter with resultant moderate left hydroureteronephrosis. Nonspecific ill-defined hyperdensity in the lower pole the left kidney which is incompletely evaluated. This may represent a small milk of calcium or hemorrhagic cyst. These findings were discussed with Dr. Rowell by telephone at 2:35PM ON 05/08/2016. Electronically signed by: YOBANI ASHLEY Dictated: 05/08/2016 14:36 Problems Encounter Diagnosis No relevant problems exist. Encounters Encounter Diagnosis No relevant problems exist. Plan of Care Procedures No relevant procedures performed. Immunizations No immunizations administered or ordered. Hospital Course Hospital Discharge Instructions Allergies, Adverse Reactions, Alerts * Latex Allergy has not been assessed. * IV Contrast Allergy has not been assessed. Medication Medication reconciliation has not been performed.
--- OUTSIDE RECORDS SUMMARY | 2016-05-18 11:06 | XMS REPORT | Summary of Care ---
Author Author Logan Beach D.O. Organization Unknown Address Unknown Phone Unavailable Care Team Providers Care Forcer Maker Name Role Phone Logan Beach D.O. Unavailable Unavailable Danial Stewart M.D. 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 Hypothyroidism (244.9, E03.9) Status: Active Conjunctivitis of both eyes (372.30, H10.9) Status: Active Abnormal glucose (790.29, R73.09) Status: Active Migraine (346.90, G43.909) Status: Active Obesity (278.00, E66.9) Status: Active Examination for school or camp (V70.3, Z02.9) Status: Active Acne (706.1, L70.9) Status: Active Acute sinusitis (461.9, J01.90) Status: Active Lower Back Pain Chronic Status: Active Medications Name Dates Details Topiramate 25 MG Oral Tablet TAKE 2 TABLET IN THE MORNING AND 1 TABLETS AT BEDTIME. Quantity: 90 Logan Beach.Anusha.* Started 19-Sep-2013 ActiveGentamicin Sulfate 0.3 % Ophthalmic Solution INSTILL 2 DROP 4 times daily Both Eyes Until Clear * Quantity: 1 Refills: 0 Logan Beach.O.* Started 19-Sep-2013 Active5 ML Bottle Meloxicam 7.5 MG Oral Tablet take one tablet by mouth every day * Quantity: 30 Refills: 0 Logan Beach.O.* Started 21-Sep-2011 ActiveAczone 5 % External Gel APPLY THIN LAYER TO FACE AT BEDTIME * Quantity: 30 Refills: 0 Feliciano Stewart M.D.* Started 07-Oct-2011 Active Allergies and Adverse Reactions Name Dates Details No Known Drug Allergies Status: Active Procedures Procedure Dates Details Procedures not documented Immunization Name Dates Details DTP Administered on:1986 OPV Administered on:1986 OPV Administered on:1986 DTP Administered on:1986 DTP Administered on: OPV Administered on: MMR Administered on:03-May-1987 HIB Administered on:07-May-1988 OPV Administered on:07-May-1988 DTaP Administered on:07-May-1988 OPV Administered on: DTaP Administered on: MMR Administered on: Hepatitis B Administered on:15-Sep-1992 Hepatitis B Administered on:15-Oct-1992 Hepatitis B Administered on: Influenza Administered on:20-Nov-1995 DT Administered on: Tdap (Adacel) Administered on:13-Jul-2011 Social History Name [...]
--- OUTSIDE RECORDS SUMMARY | 2016-05-18 11:06 | XMS REPORT | Summary of Care ---
Author Author Logan Beach D.O. Organization Unknown Address [address], [place] [id number] Phone Unavailable Care Team Providers Care Bolter Helper Name Role Phone Logan Beach D.O. Unavailable Unavailable Smarsh-Jerardotileivis INBOUND CALL CENTER REPRESENTATIVE, Crystal Unavailable Unavailable Logan Beach PP Unavailable [...] NOSTRIL ONCE DAILY. Quantity: 1 Brookh-Gentry Crystal INBOUND CALL CENTER REPRESENTATIVE* Started 01-Mar-2014 Pcrjmq38 GM Bottle Lomedia 24 FE 1-20 MG-MCG(24) Oral Tablet TAKE 1 TABLET DAILY. * Quantity: 1 Refills: 3 Logan Beach D.O.* Started 24-Apr-2014 Ehltam35 Tablet Disp Pack (3 Disp Packs) Amoxicillin [...] on:20-Nov-1995 DT Administered on: PPD Lot #: [id number] Administered on:13-Jul-2011 Tdap (Adacel) Administered on:13-Jul-2011 Social [...] documented On 23-Oct-2014 13:00 Appointment; Logan Beach Diagnosis: Problem not documented On 18-Sep-2014 07:30 Appointment; Logan Beach Encounter Diagnosis: Problem not documented On 07:00 Appointment; Logan Beach Diagnosis: Problem not documented On 13:00 Appointment; [...]
--- OUTSIDE RECORDS SUMMARY | 2016-05-18 11:06 | XMS REPORT | Summary of Care ---
Author Author Logan Beach D.O. Organization Unknown Address [address], [place] [address] Phone Unavailable Care Team Providers Care Transportation Consultant Name Role Phone Logan Beach D.O. Unavailable [...] 30 Refills: 5 Logan Beach D.O.* Started 4-Apr-2016 Active Allergies and Adverse Reactions Name Dates Details No Known Drug Allergies Status: Active Past Medical History Name Dates Details History of acute sinusitis (V12.69, Z87.09) Status: Resolved Procedures Procedure Dates Details Urinalysis, reflex to Micro and Culture ([facility]) 8016 Ordered: Immunization Name Dates Details [...] on:20-Nov-1995 DT Administered on: PPD Lot #: [id number] Administered on:13-Jul-2011 Tdap (Adacel) Administered on:13-Jul-2011 Social [...]
--- OUTSIDE RECORDS SUMMARY | 2016-05-18 11:06 | XMS REPORT | Summary of Care ---
Author Author Logan Beach D.O. Organization Unknown Address [address], [place] [id number] Phone Unavailable Care Team Providers Care Airway Controller Name Role Phone Logan Beach D.O. Unavailable Unavailable Bel Nolan APRN Unavailable Unavailable Logan Beach PP Unavailable Unavailable [...] Dysfunctional uterine bleeding (626.8, N93.8) Status: Active Medications Name Dates Details Fluticasone Propionate 50 MCG/ACT Nasal Suspension USE 1 TO 2 SPRAYS IN EACH NOSTRIL ONCE DAILY. Quantity: 1 Bel Nolan APRN* Started 01-Mar-2014 Qpelqu92 GM Bottle Lomedia 24 FE 1-20 MG-MCG(24) Oral Tablet TAKE 1 TABLET DAILY. * Quantity: 1 Refills: 3 Logan Beach D.O.* Started 24-Apr-2014 Zizyzf70 Tablet Disp Pack (3 Disp Packs) Amoxicillin [...] on:20-Nov-1995 DT Administered on: PPD Lot #: [id number] Administered on:13-Jul-2011 Tdap (Adacel) Administered on:13-Jul-2011 Social History Name Dates Details Smoking Status* Never smoker Vital Signs Date Test Result Details 23-Oct-2014 13:07 BP Systolic 118 mm[Hg] Status: [...]
--- OUTSIDE RECORDS SUMMARY | 2016-05-18 11:06 | XMS REPORT | Summary of Care ---
Author Author Logan Beach D.O. Organization Unknown Address [address], [place] [id number] Phone Unavailable Care Team Providers Care Family Medicine Physician Assistant Name Role Phone Logan Beach D.O. 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 * Quantity: 30 Refills: 5 Logan Beach D.O. * Start 15-Mar-2016 Active Allergies and Adverse Reactions Name Dates Details No Known Drug Allergies (Allergy) Status: Active Past Medical History Name Dates Details History of acute sinusitis (V12.69, Z87.09) Status: Resolved Procedures Procedure Dates Details FREE T4 3604 Ordered: 15-Mar-2016 THYROID STIM. HORMONE 3602 Ordered: 15-Mar-2016 Immunization Name Dates Details DTP on: 1986 OPV on: 1986 OPV on: 1986 DTP on: 1986 DTP on: OPV on: MMR on: 03-May-1987 HIB on: 07-May-1988 OPV on: 07-May-1988 DTaP on: 07-May-1988 OPV on: DTaP on: MMR on: Hepatitis B on: 15-Sep-1992 Hepatitis B on: 15-Oct-1992 Hepatitis B on: PPD on: Influenza on: 20-Nov-1995 DT on: PPD Lot #: [id number] on: 13-Jul-2011 Tdap (Adacel) on: 13-Jul-2011 Social History Name Dates Details - Status: Name Dates Details Never smoker Vital Signs Date Test Result Details 15-Mar-2016 10:19 BP Systolic 130 mm[Hg] Status: Comments: Location: ; Position: BP Diastolic 68 mm[Hg] Status: Comments: Location: ; Position: Heart Rate 80 /min Status: Comments: Location: ; Height 66.5 in Status: Weight 238 lb Status: Body Mass Index Calculated 37.84 kg/m2 Status: Body Surface Area Calculated 2.17 m2 Status: Results Date Description Value Details 11-Mar-2016 09:31 [...] of Care Name Dates Details Planned Observations FREE T4 3604 On 11-Jun-2016 Intent THYROID STIM. HORMONE 3602 On 11-Jun-2016 Intent Planned Goals not documented Planned Encounters Appointment; Provider: Logan Beach D.O. On 07-Jun-2016 08:30 Interventions Provided Medication Changes* Levothyroxine Sodium 50 MCG Oral Tablet - Start * Phentermine HCl - 37.5 MG Oral Capsule - Renew with Changes Instructions Name Dates Details Instructions not documented [...]
--- OUTSIDE RECORDS SUMMARY | 2016-05-18 11:06 | XMS REPORT | Summary of Care ---
Author Author Logan Beach D.O. Organization Unknown Address [address], [place] [address] Phone Unavailable Care Team Providers Care Dredge Captain Name Role Phone Logan Beach D.O. Unavailable [...] on:20-Nov-1995 DT Administered on: PPD Lot #: [id number] Administered on:13-Jul-2011 Tdap (Adacel) Administered on:13-Jul-2011 Social History Name Dates Details Smoking Status* Never smoker Vital Signs Date Test Result Details 19-May-2015 15:17 Temperature 97.8 f Status: Heart Rate 70 /min Status: Weight 200.25 lb Status: Body Mass Index Calculated 31.84 kg/m2 Status: Body Surface Area Calculated 2.01 m2 Status: Results Date Description Value Details 26-May-2015 14:04 Urinalysis, reflex to Micro and Culture ([facility]) 8016 pH 6.0 (Better) Range: 5.0-7.5 SP [...] Negative-Trace EPITH 11-20 /HPF (Abnormal) Range: 0-10 Plan of Care Planned Observations* Name Dates [...] documented On 18-Sep-2014 07:30 Appointment; Logan Beach Diagnosis: Problem not documented On 07:00 Appointment; [...]
--- OUTSIDE RECORDS SUMMARY | 2016-05-18 11:06 | XMS REPORT | Summary of Care ---
Author Author Sunshine Marroquin Organization Unknown Address [address], [place] [id number] Phone Unavailable Care Team Providers Care Traveling Phlebotomist Name Role Phone Logan Beach D.O. Unavailable Unavailable Sunshine Marroquin Unavailable Unavailable Logan Beach Unavailable Unavailable Unavailable [...] Status: Active Migraine (346.90, G43.909) Status: Active Acne (706.1, L70.9) Status: Active [...] Status: Active Hypothyroidism (244.9, E03.9) Status: Active Acute sinusitis (461.9, J01.90) Status: Active Medications Name Dates Details Phentermine HCl - 37.5 MG Oral Capsule TAKE 1 CAPSULE DAILYWt Loss Quantity: 30 Logan Beach D.O. * Start Active Meloxicam 7.5 MG Oral Tablet Take 1 tablet daily * Quantity: 30 Refills: 5 Beach D.O., Logan * Start 19-May-2015 Active Levothyroxine Sodium 50 MCG Oral Tablet TAKE 1 TABLET DAILY. * Quantity: 30 Refills: 5 Logan Beach D.O. * Start 15-Mar-2016 Active 1-20 MG-MCG(24) Oral Tablet TAKE 1 TABLET DAILY. * Refills: 0 * Start 26-Mar-2016 Active Amoxicillin-Pot Clavulanate 875-125 MG Oral Tablet TAKE 1 TABLET EVERY 12 HOURS DAILY. * Quantity: 20 Refills: 0 Sunshine Marroquin * Start 26-Mar-2016 End 05-Apr-2016 Active Fluticasone Propionate 50 MCG/ACT Nasal Suspension USE 1 TO 2 SPRAYS IN EACH NOSTRIL ONCE DAILY. * Quantity: 1 Refills: 0 Sunshine Marroquin * Start 26-Mar-2016 Active 16 GM Bottle Allergies and Adverse Reactions Name Dates Details No Known Drug Allergies (Allergy) Status: Active Past Medical History Name Dates Details History of acute sinusitis (V12.69, Z87.09) Status: Resolved History of acute sinusitis (V12.69, Z87.09) Status: [...] on: 20-Nov-1995 DT on: PPD Lot #: [id number] on: 13-Jul-2011 Tdap (Adacel) on: 13-Jul-2011 Family History Name Dates Details Family history of Known health problems: none (V49.89, Z78.9) Status: Active Name Dates Details Family history of Known health problems: none (V49.89, Z78.9) Status: Active Social History Name Dates Details - Status: Name Dates Details Never smoker Vital Signs Date Test Result Details 26-Mar-2016 08:47 BP Systolic 116 mm[Hg] Status: Comments: Location: ; Position: BP Diastolic 74 mm[Hg] Status: Comments: Location: ; Position: Temperature 98.2 f Status: Heart Rate 71 /min Status: Comments: Location: ; Physical Findings 98 Status: Comments: O2 Saturation 15-Mar-2016 10:19 BP Systolic 130 mm[Hg] Status: [...] On 07-Jun-2016 08:30 Interventions Provided Medication Changes* Amoxicillin-Pot Clavulanate 875-125 MG Oral Tablet - Start * Fluticasone Propionate 50 MCG/ACT Nasal Suspension - Start Instructions Name Dates Details Instructions not documented Encounters Appointment; Logan Beach D.O. Encounter Diagnosis: Problem not documented On 15-Mar-2016 10:15 Appointment; Logan Beach D.O. Encounter Diagnosis: Problem [...]
--- OUTSIDE RECORDS SUMMARY | 2016-05-18 11:06 | XMS REPORT | Summary of Care ---
Author Author Jered Manriquez, Mor Bird Unknown Address [address] [place], [place] [id number] Phone Unavailable Care Team Providers Care Rn Cardiac Name Role Phone Logan Beach D.O. Unavailable Unavailable Bel Nolan APRN Unavailable Unavailable Mor Lawton M.D. Unavailable Unavailable Logan Beach PP Unavailable [...] Colon cancer screening (V76.51, Z12.11) Status: Active Medications Name Dates Details Fluticasone Propionate 50 MCG/ACT Nasal Suspension USE 1 TO 2 SPRAYS IN EACH NOSTRIL ONCE DAILY. Quantity: 1 rsh-Bel Rinaldi RADIATION ONCOLOGY NURSE* Started 01-Mar-2014 Lvyikd68 GM Bottle Lomedia 24 FE 1-20 MG-MCG(24) Oral Tablet TAKE 1 TABLET DAILY. * Quantity: 1 Refills: 3 Logan Beach D.O.* Started 24-Apr-2014 Pyyuip54 Tablet Disp Pack (3 Disp Packs) Amoxicillin 500 MG Oral Capsule Take 1 capsule twice daily * Quantity: 60 Refills: 5 Logan Beach D.O.* Started ActivePhentermine HCl - 37.5 MG Oral Capsule TAKE 1 CAPSULE DAILY.WT LOSS * Quantity: 30 Refills: 0 Logan Beach.Anusha.* Started ActiveSenna S 8.6-50 MG Oral Tablet TAKE 1 TABLET Bedtime * Quantity: 30 Refills: 0 Logan Beach D.O.* Started 13-Nov-2014 ActivePEG-3350/Electrolytes 236 GM Oral Solution Reconstituted TAKE DIRECTED FOR COLONOSCOPY * Quantity: 1 Refills: 0 Mor Lawton M.D.* Started 18-Nov-2014 [id number] ML Bottle Allergies and Adverse Reactions Name Dates Details No Known Drug Allergies Status: Active Past Medical History Name Dates Details History of acute sinusitis (V12.69, Z87.09) Status: Resolved Procedures Procedure Dates Details Colonoscopy- Screening or Dx Ordered:13-Nov-2014 SERUM TEST 8020 Ordered:15-Nov-2014 STOOL OCCULT BLOOD PANEL (x3) 8210 Ordered:12-Nov-2014 [...] on:20-Nov-1995 DT Administered on: PPD Lot #: [id number] Administered on:13-Jul-2011 Tdap (Adacel) Administered on:13-Jul-2011 Social [...] not documented Goal Planned Encounters* Appointment; Provider: Mor Lawton On 28-Nov-2014 09:00 * Appointment; Provider: Cecy Linton On 28-Nov-2014 08:30 * Appointment; Provider: Feliciano Stewart On 13-Dec-2012 [...] not documented On 24-Apr-2014 13:15 Appointment; Bel Noaln Encounter Diagnosis: Problem not documented On 16-Apr-2014 [...]
--- OUTSIDE RECORDS SUMMARY | 2016-05-18 11:06 | XMS REPORT | Summary of Care ---
Author Author Logan Beach D.O. Organization Unknown Address [address], [place] [phone] Phone Unavailable Care Team Providers Care Aquatic Ecologist Name Role Phone Logan Beach D.O. Unavailable Unavailable Ovidio OYSTER CULTURIST, Crystal Unavailable Unavailable Danial Stewart M.D. Unavailable [...] * Quantity: 1 Refills: 0 Ovidio Bel WORKMANN* Started 01-Mar-2014 Jmomko10 GM Bottle Amoxicillin-Pot Clavulanate 875-125 MG Oral Tablet 1 tablet BID x 10 days * Quantity: 20 Refills: 0 Ovidio Bel OYSTER CULTURIST* Started 16-Apr-2014 Ended 26-Apr-2014 Active Allergies and Adverse Reactions Name Dates [...] on:20-Nov-1995 DT Administered on: PPD Lot #: [id number] Administered on:13-Jul-2011 Tdap (Adacel) Administered on:13-Jul-2011 Social History Name Dates Details Smoking Status* Never smoker Vital Signs Date Test Result Details 24-Apr-2014 12:56 BP Systolic 116 mm[Hg] Status: BP Diastolic 70 mm[Hg] Status: Heart Rate 84 /min Status: Weight 235 lb Status: Body Mass Index Calculated 37.36 kg/m2 Status: Body Surface Area Calculated 2.15 m2 Status: 16-Apr-2014 12:09 Heart Rate 88 /min Status: [...]
--- OUTSIDE RECORDS SUMMARY | 2016-05-18 11:07 | XMS REPORT | Summary of Care ---
Author Author Logan Beach D.O. Organization Unknown Address [address], [place] [phone] Phone Unavailable Care Team Providers Care Resource Analyst Name Role Phone Logan Beach D.O. Unavailable [...] on:20-Nov-1995 DT Administered on: PPD Lot #: [id number] Administered on:13-Jul-2011 Tdap (Adacel) Administered on:13-Jul-2011 Social History Name Dates Details Smoking Status* Never smoker Vital Signs Date Test Result Details 09:51 BP Systolic 128 mm[Hg] Status: BP Diastolic 72 mm[Hg] Status: Weight 198.25 lb Status: Body Mass Index Calculated 31.52 kg/m2 Status: Body Surface Area Calculated 2 m2 Status: Results Date Description Value Details Results not documented Plan of Care Planned Observations* Name Dates Details Planned Goals not documented Goal Planned Encounters* Appointment; Provider: Feliciano Stewart On 13-Dec-2012 13:30 Instructions * Instructions not documented Encounters Appointment; Logan Beach Encounter Diagnosis: Problem not documented On 07:45 Appointment; Logan Beach Encounter Diagnosis: Problem [...]
--- OUTSIDE RECORDS SUMMARY | 2016-05-18 11:07 | XMS REPORT | Summary of Care ---
Author Author Logan Beach D.O. 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 Lower Back Pain Chronic Status: Active Acute sinusitis (461.9, J01.90) Status: Active Acne (706.1, L70.9) Status: Active Examination for school or camp (V70.3, Z02.9) Status: Active Hypothyroidism (244.9, E03.9) Status: Active Migraine (346.90, G43.909) Status: Active Conjunctivitis of both eyes (372.30, H10.9) Status: Active Abnormal glucose (790.29, R73.09) Status: Active Obesity (278.00, E66.9) Status: Active Medications Name Dates Details Meloxicam 7.5 MG Oral Tablet take one tablet by mouth every day Quantity: 30 Not Specified * Started 21-Sep-2011 ActiveAczone 5 % External Gel APPLY THIN LAYER TO FACE AT BEDTIME * Quantity: 30 GM Refills: 0 * Started 07-Oct-2011 ActiveTopiramate 25 MG Oral Tablet 1 TABLET QD X'S 1 WEEK THEN 1 PILL BID THEREAFTER * Quantity: 60 Tablet Refills: 3 * Started 19-Sep-2013 ActiveGentamicin Sulfate 0.3 % Ophthalmic Solution INSTILL 2 DROP 4 times daily Both Eyes Until Clear * Quantity: 1X5 ML Bottle Refills: 0 * Started 19-Sep-2013 Active Allergies and Adverse Reactions Name Dates Details No Known Drug Allergies Status: Active Procedures Procedure Dates Details Surgical history not documented Procedures not documented Immunization Name Dates Details DTP Comments: 86 OPV Comments: 86 OPV Comments: 86 DTP Comments: 86 DTP Comments: 86 OPV Comments: 86 MMR Comments: 05/03/87 HIB Comments: 05/07/88 OPV Comments: 05/07/88 DTaP Comments: 05/07/88 OPV Comments: 08/01/88 DTaP Comments: 08/02/91 MMR Comments: 08/02/91 Hepatitis B Comments: 09/15/92 Hepatitis B Comments: 10/15/92 Hepatitis B Comments: 08/06/93 PPD Comments: 08/06/93 Influenza Comments: 11/20/95 DT Administered on: PPD Lot #: [id number] Comments: 07/13/11 Tdap (Adacel) Comments: 07/13/11 Social History Name Dates Details Never smoker Smoking Status* Never smoker Vital Signs Date Test Result Details 19-Sep-2013 09:49 BP Systolic 116 mm[Hg] Status: BP Diastolic 82 mm[Hg] Status: Heart Rate 76 /min Status: Weight 272 lb Status: Body Mass Index Calculated 43.24 kg/m2 Status: Body Surface Area Calculated 2.29 Status: Results Date Description Value Details Resulted on: 08:58 GLUCOSE 1100 Comments: Fastin hours GLUCOSE 97 mg/dL Range: 70-100=Better 09:56 THYROID STIM. HORMONE 3602 Comments: Fastin hours THYROID STIM. HORMONE 2.046 uIU/mL Range: 0.550-4.780=Better Comments: \[id number]\No established reference ranges for infants and children < 2 years of ageNo established reference ranges for infants and children <2 years of age----- 09:56 FREE T4 3604 Comments: Fastin hours FREE T4 0.89 ng/dL Range: 0.80-1.67=Better Plan of Care Instructions* Instructions not documented Planned Observations* Name Dates Details Planned Goals not documented Goal Planned Encounters* Appointment; Provider: Logan Beach On 21-Nov-2013 10:15 * Appointment; Provider: Feliciano Stewart On 26-Sep-2013 09:45 * Appointment; Provider: Dana James On 26-Sep-2013 09:45 * Appointment; Provider: Feliciano Stewart On 13-Dec-2012 13:30 Instructions * No Known Instructions Encounters Appointment; Logan Beach Encounter Diagnosis: Problem not documented On 19-Sep-2013 09:45 Appointment; Laura Barrera Encounter Diagnosis: Problem not documented On 30-Dec-2011 14:30 Appointment; Laura Barrera Encounter Diagnosis: Problem not documented On 28-Dec-2011 14:30 Appointment; Laura Barrera Encounter Diagnosis: Problem not documented On 21-Dec-2011 14:30 Appointment; Laura Barrera Encounter Diagnosis: Problem not documented On 16-Dec-2011 14:30 Appointment; Rashmi Zepeda Encounter Diagnosis: Problem not documented On 15-Dec-2011 15:00 Appointment; Logan Beach Encounter Diagnosis: Problem not documented On 02-Dec-2011 13:45 Appointment; Feliciano Stewart Encounter Diagnosis: Problem not documented On 07-Oct-2011 08:45 Appointment; Logan Beach Encounter Diagnosis: Problem not documented On 05-Oct-2011 10:45 Appointment; Logan Beach Encounter Diagnosis: Problem not documented On 21-Sep-2011 08:45
--- OUTSIDE RECORDS SUMMARY | 2016-05-18 11:07 | XMS REPORT ---
Author Author GENERATED, SYSTEM Organization Unknown Address Unknown Phone Unavailable Care Team Providers Care Grievance And Appeals Specialist Name Role Phone DO DAVE ALAN [phone] Reason For Visit Chief Complaint POSSIBLE KIDNEY STONES Social History Functional Status Vital Signs Results Urinalysis from 05/17/2015 1:48 PM*URINE COLOR YELLOW (STRAW/YELL/DK YELL ) *URINE COLOR YELLOW (STRAW/YELL/DK YELL ) *URINE APPEARANCE CLOUDY A (CLEAR ) *URINE APPEARANCE CLOUDY A (CLEAR ) URINE PH 7.0 (5.0-8.0 ) URINE PH 7.0 (5.0-8.0 ) URINE SPECIFIC GRAVITY 1.010 (<=1.005->=1.030 ) URINE SPECIFIC GRAVITY 1.010 (<=1.005->=1.030 ) *URINE GLUCOSE NEGATIVE MG/DL (NEGATIVE MG/DL) *URINE GLUCOSE NEGATIVE MG/DL (NEGATIVE MG/DL) *URINE BILIRUBIN NEGATIVE (NEGATIVE ) *URINE BILIRUBIN NEGATIVE (NEGATIVE ) *URINE KETONES NEGATIVE MG/DL (NEGATIVE MG/DL) *URINE KETONES NEGATIVE MG/DL (NEGATIVE MG/DL) *URINE BLOOD LARGE A (NEGATIVE ) *URINE BLOOD LARGE A (NEGATIVE ) *URINE PROTEIN NEGATIVE MG/DL (NEGATIVE MG/DL) *URINE PROTEIN NEGATIVE MG/DL (NEGATIVE MG/DL) *URINE UROBILINOGEN 0.2 EU/DL (0.2-1.0 EU/DL) *URINE UROBILINOGEN 0.2 EU/DL (0.2-1.0 EU/DL) *URINE NITRITES NEGATIVE (NEGATIVE ) *URINE NITRITES NEGATIVE (NEGATIVE ) *URINE LEUKOCYTES SMALL A (NEGATIVE ) *URINE LEUKOCYTES SMALL A (NEGATIVE ) *MICROSCOPIC EXAM PERFORMED PERFORMED *WBC URINE 1-5 /HPF (0-5 /HPF) *RBC URINE 10-25 /HPF A (0-1 /HPF) *SQUAMOUS EP. CELLS FEW /LPF (NEG-FEW /LPF) *BACTERIA FEW /HPF A (NEGATIVE /HPF) Microbiology from 05/17/2015 1:48 PM* CULTURE URINE (Preliminary Result) Specimen Number: [id number] Sample Collection Date/Time: 05/17/2015 1:48 PM Specimen Source: Urine No Method Given CULTURE URINE: 10,000 cfu/ml - 50,000 cfu/ml gram positive colony types Problems Encounter Diagnosis No relevant problems exist. [...]
--- OUTSIDE RECORDS SUMMARY | 2016-05-18 11:07 | XMS REPORT | Summary of Care ---
Author Author Logan Beach D.O. Organization Unknown Address [address], [place] [address] Phone Unavailable Care Team Providers Care Perishable Fruit Inspector Name Role Phone Logan Beach D.O. Unavailable [...] on:20-Nov-1995 DT Administered on: PPD Lot #: [id number] Administered on:13-Jul-2011 Tdap (Adacel) Administered on:13-Jul-2011 Social History Name Dates Details Smoking Status* Never smoker Vital Signs Date Test Result Details 19-May-2015 15:17 Temperature 97.8 f Status: Heart Rate 70 /min Status: Weight 200.25 lb Status: Body Mass Index Calculated 31.84 kg/m2 Status: Body Surface Area Calculated 2.01 m2 Status: Results Date Description Value Details 26-May-2015 14:04 Urinalysis, reflex to Micro and Culture ([facility]) 8016 pH 6.0 (Better) Range: [...] (Abnormal) Range: 0-10 28-May-2015 07:41 URINE CULTURE [id number] Comments: [employer] performed at: [facility], [address] [place], [address], Drill Press Operator Helper: Daniel Kirby D.O., MPHQuest Collection Date/Time: [id number] Results Received Date/Time: [id number] Reported Date/Time: [id number] CULTURE, URINE, ROUTINE SEE NOTE (Better) Comments: CULTURE, URINE, ROUTINE MICRO NUMBER: [id number] TEST STATUS: FINAL SPECIMEN SOURCE : URINE, CLEAN CATCH SPECIMEN QUALITY: ADEQUATE RESULT: Multiple organisms present, each less than 10,000 CFU/mL. These organisms, commonly found on external and internal genitalia, are considered to be colonizers. No further testing performed.[CO]----- Plan of Care Planned Observations* Name Dates [...]
--- OUTSIDE RECORDS SUMMARY | 2016-05-18 11:07 | XMS REPORT | Summary of Care ---
Author Author Daniel Shoemaker M.D. Unknown Address [address] [place] [address] [place] [address] Phone Unavailable Care Team Providers Care Outsole Paraffiner Name Role Phone Daniel Shoemaker M.D. Unavailable Unavailable Logan Beach Unavailable Unavailable Unavailable [...] (706.1, L70.9) Status: Active control counseling (V25.09, Z30.09) Status: Active Dysfunctional uterine bleeding (626.8, N93.8) [...] Active Acute sinusitis (461.9, J01.90) Status: Active Left ureteral stone (592.1, N20.1) Status: Active Hydronephrosis, left (591, N13.30) Status: Active Abnormal CT scan, kidney (793.5, R93.429) Status: Active Gross hematuria (599.71, R31.0) Status: Active Medications Name Dates Details 1-20 MG-MCG(24) Oral Tablet TAKE 1 TABLET DAILY. * Start 26-Mar-2016 Active Nitrofurantoin Monohyd Macro 100 MG Oral Capsule TAKE 1 CAPSULE TWICE DAILY UNTIL GONE. * Quantity: 20 Refills: 0 Daniel Shoemaker M.D. * Start 13-May-2016 Active Allergies and Adverse Reactions Name Dates Details No Known Drug Allergies (Allergy) Status: Active Past Medical History Name Dates Details History of acute sinusitis (V12.69, Z87.09) Status: Resolved History of acute sinusitis (V12.69, Z87.09) Status: Resolved Procedures Procedure Dates Details History Of Prior Surgery Procedures not documented Immunization Name Dates Details DTP on: 1986 OPV on: 1986 OPV on: 1986 DTP on: 1986 DTP on: OPV on: MMR on: 03-May-1987 HIB on: 07-May-1988 OPV on: 07-May-1988 DTaP on: 07-May-1988 OPV on: DTaP on: MMR on: Hepatitis B on: 15-Sep-1992 Hepatitis B on: 15-Oct-1992 Hepatitis B on: PPD on: Influenza on: 20-Nov-1995 DT on: PPD Lot #: [id number] on: 13-Jul-2011 Tdap (Adacel) on: 13-Jul-2011 Family History Name Dates Details Family history of Known health problems: none (V49.89, Z78.9) Status: Active Name Dates Details Family history of Known health problems: none (V49.89, Z78.9) Status: Active Social History Name Dates Details - Status: Name Dates Details Never smoker Vital Signs Date Test Result Details 13-May-2016 12:42 BP Systolic 126 mm[Hg] Status: Comments: Location: ; Position: BP Diastolic 67 mm[Hg] Status: Comments: Location: ; Position: Heart Rate 80 /min Status: Comments: Location: ; Height 67 in Status: Weight 215 lb Status: Body Mass Index Calculated 33.67 kg/m2 Status: Body Surface Area Calculated 2.09 m2 Status: Results Date Description Value Details Results not documented Plan of Care Name Dates Details Planned Observations Planned Goals not documented Planned Encounters Appointment; Provider: Logan Beach D.O. On 07-Jun-2016 08:30 Appointment; Provider: Daniel Shoemaker M.D. On 18-May-2016 10:30 Interventions Provided Medication Changes* Nitrofurantoin Monohyd Macro 100 MG Oral Capsule - Start Instructions Name Dates Details Instructions not documented Encounters Appointment; Sunshine Marroquin APRN Encounter Diagnosis: Problem not documented On 26-Mar-2016 08:40 Appointment; Logan Beach D.O. Encounter Diagnosis: Problem [...]
--- OUTSIDE RECORDS SUMMARY | 2016-05-18 11:07 | XMS REPORT | Summary of Care ---
Author Author Bel Nolan APRN Organization Unknown Address [address], [place] [address] Phone Unavailable Care Team Providers Care Marine Technician Name Role Phone Logan Beach D.O. Unavailable Unavailable Bel Nolan APRN Unavailable Unavailable Danial Stewart M.D. Unavailable Unavailable [...] by mouth every day Quantity: 30 Logan Beach.O.* Started 21-Sep-2011 ActiveAczone 5 % [...] Beach D.O.* Started 19-Sep-2013 Active5 ML Bottle Azithromycin 250 MG Oral Tablet TAKE 2 TABLETS ON DAY 1 THEN TAKE 1 TABLET A DAY FOR 4 DAYS. * Quantity: 1 Refills: 0 Ovidio Bel LOW* Started 01-Mar-2014 Ended 06-Mar-2014 Active6 Tablet Disp Pack Fluticasone Propionate 50 MCG/ACT Nasal Suspension USE 1 TO 2 SPRAYS IN EACH NOSTRIL ONCE DAILY. * Quantity: 1 Refills: 0 Ovidio Bel LOW* Started 01-Mar-2014 Ffochd40 GM Bottle Allergies and Adverse Reactions Name [...] on:20-Nov-1995 DT Administered on: PPD Lot #: [id number] Administered on:13-Jul-2011 Tdap (Adacel) Administered on:13-Jul-2011 Social History Name Dates Details Smoking Status* Never smoker Vital Signs Date Test Result Details 01-Mar-2014 13:45 BP Systolic 136 mm[Hg] Status: BP Diastolic 74 mm[Hg] Status: Heart Rate 86 /min Status: Temperature 97.7 f Status: Weight 244 lb Status: O2 SAT 97 % Status: Body Mass Index Calculated 38.79 kg/m2 Status: Body Surface Area Calculated 2.19 m2 Status: Results Date Description Value Details [...]
--- OUTSIDE RECORDS SUMMARY | 2016-05-18 11:07 | XMS REPORT | Summary of Care ---
Author Author Logan Beach D.O. Organization Unknown Address [address] [place], [place] [id number] Phone Unavailable Care Team Providers Care Overnight Stocker Name Role Phone Logan Beach D.O. Unavailable [...] Dysfunctional uterine bleeding (626.8, N93.8) Status: Active Bloody stools (578.1, K92.1) Status: Active Medications Name Dates Details Fluticasone Propionate 50 MCG/ACT Nasal Suspension USE 1 TO 2 SPRAYS IN EACH NOSTRIL ONCE DAILY. Quantity: 1 Bel Nolan APRN* Started 01-Mar-2014 [id number] GM Bottle Lomedia 24 FE 1-20 MG-MCG(24) Oral Tablet TAKE 1 TABLET DAILY. * Quantity: 1 Refills: 3 Logan Beach D.O.* Started 24-Apr-2014 [id number] Tablet Disp Pack (3 Disp Packs) Amoxicillin [...] Z87.09) Status: Resolved Procedures Procedure Dates Details CBC w/ Auto Diff 7150 Ordered:12-Nov-2014 STOOL OCCULT BLOOD PANEL (x3) 8210 Ordered:12-Nov-2014 [...] on:20-Nov-1995 DT Administered on: PPD Lot #: [id number] Administered on:13-Jul-2011 Tdap (Adacel) Administered on:13-Jul-2011 Social [...] Planned Encounters* Appointment; Provider: Logan Beach On 13-Nov-2014 15:15 * Appointment; Provider: Feliciano Stewart On 13-Dec-2012 [...]
[2016-05-18 11:08] VITALS: Ht 170.2 cm; Wt 98.9 kg
[2016-05-18 11:09] VITALS: BP 137/63; PULSE 70; RESP 14; TEMP 98.6; O2SAT 98
[2016-05-18 11:16] LABS: BASOPHILS # (AUTO) 0.1 T/MM3 (0-0.2); BASOPHILS % (AUTO) 0.5 % (0-2); EOSINOPHILS # (AUTO) 0.1 T/MM3 (0-0.5); EOSINOPHILS % (AUTO) 0.7 % (0-4); HCT - HEMATOCRIT 41.2 % (36-46); HGB - HEMOGLOBIN 13.2 GM/DL (12-16); IMMATURE GRANULOCYTE # (AUTO) 0.01 T/MM3 (0.00-0.03); IMMATURE GRANULOCYTE % (AUTO) 0.1 % (0.0-0.5); LYMPHOCYTES # (AUTO) 2.1 T/MM3 (1-4.8); LYMPHOCYTES % (AUTO) 20.1 % (23-45); MEAN CORPUSCULAR HGB 29.3 UUG (26-34); MEAN CORPUSCULAR VOLUME 91.6 UM3 (80-100); MEAN PLATELET VOLUME 11.9 UM3 (9.4-12.4); MONOCYTES # (AUTO) 0.6 T/MM3 (0-0.8); MONOCYTES % (AUTO) 5.3 % (0-9.0); NEUTROPHILS #(AUTO)-ABSOLUTE 7.8 T/MM3 (1.8-7.7); NEUTROPHILS % (AUTO) 73.3 % (33-66); WBC - WHITE BLOOD COUNT 10.7 T/MM3 (4.5-11.0)
[2016-05-18 11:27] LABS: ANION GAP 11 MEQ/L (5-15); BUN/CREATININE RATIO 11 RATIO (6-26); CALCIUM 9.3 MG/DL (8.4-10.2); CHLORIDE 107 MEQ/L (98-107); CO2 - CARBON DIOXIDE 27 MEQ/L (22-30); CREATININE 0.8 MG/DL (0.7-1.2); GLOMERULAR FILTRATION RATE 84; GLUCOSE 101 MG/DL (65-110); POTASSIUM 3.8 MEQ/L (3.6-5); SODIUM 145 MEQ/L (134-144)
[2016-05-18] MEDS ORDERED: GENTAMICIN 80 MG/2 ML INJECTION ONE ×2 (12:41→12:55)
[2016-05-18] MEDS ORDERED: IOHEXOL 300 MG/ML 50ml INJECTION ONE (12:41)
--- NOTE | 2016-05-18 12:52 | ANESPREOP ---
Anesthesia Record Date and Time DATE: 05/18/16 TIME: 12:49 Pre-Op Diagnosis lt. ureteral stone Proposed Surgical Procedure CYSTOSCOPY Allergies: Coded Allergies: NKDA (Verified Allergy, Unknown, 05/18/16) Ht/Wt/BMI Height: 5 ' 7.00 " Weight: 98.900 kg BMI: 34.2 kg/m2 Vital Signs Date Time Temp Pulse Resp B/P Pulse Ox O2 Delivery O2 Flow Rate FiO2 05/18/16 11:09 98.6 70 14 137/63 98 Room Air Medications Inpatient Medications Current Medications Medications (Trade) Dose Ordered Sig/Carolyne Start Time Stop Time Status Last Admin Dose Admin Lactated Ringer's (Lactated Ringers) 1,000 ml @ 30 mls/hr Q24H 05/18/16 07:00 Hydrocodone/Apap (Dequincy 5-325 Tablet) 5-325 Tablet, 1 TAB PO DAILY PRN for PAIN, (Reported) Last Taken: on 06/08/15 1800 Levothyroxine Sodium (Levothyroxine Sodium) 50 Mcg Tablet, 1 TAB PO DAILY, (Reported) Last Taken: on Unknown Date & Time Norethindrone-E.estradiol-Iron (Junel Fe 24 Tablet) 1 Each Tablet, 1 TAB PO DAILY, (Reported) Last Taken: on 05/17/16 0900 Ondansetron (Ondansetron Odt) 4 Mg Tab.rapdis, 1 TAB PO DAILY PRN for NAUSEA, (Reported) Last Taken: on 06/08/15 1800 Currently on Beta Newton: No Medical/Surgical History Anesthesia PMH: Reports: *Diabetes (BODERLINE- DIET CONTROLLED), Arthritis ( KNEES), Obesity, Reflux (HX OF ), Thyroid Disease (HYPO), Denies: Anesthesia Reactions (NO AIRWAY ISSUES), Cancer, Clotting Problems, Glaucoma, Malignant Hyperthermia, Sleep Apnea Smoking Status: Never smoker Has pt. smoked today?: No Use Chewing Tobacco?: No Second Hand Exposure: No Substance Use Type: does not use Substance last used: unknown Alcohol Intake: none Last Drink: unknown HX of Last Menstrual Period: APRIL 2016 Past Surgical History Orthopedic Surgeries: Abdominal Surgeries: Genitourinary Surgeries: Cardiac Surgeries: Endocrine Surgeries: Reproductive Surgeries: Neurological Surgeries: Ear Surgeries: Nose Surgeries: Throat Surgeries: Other Surgeries: Yes - BREAST BX Anesthesia Adverse Reactions: FOUND nausea and vomiting Family Hx of Anesthesia Advers: none Hx of Motion Sickness: Yes Pertinent Findings Laboratory Tests 05/18/16 11:11 Test 05/18/16 11:11 Human Chorionic Gonadotropin, Qual Negative (NEGATIVE) EKG Rhythm: Sinus Rhythm Physical Exam Respiratory: Bilat breath sounds equal, Lungs clear Cardiovascular: FOUND Regular rate, rhythm, FOUND No murmur Airway Assessment Mallampati Score: II TMD: 3 Fingerbreadths Neck Extension: Good Overall Assessment: No Airway Concerns ASA: 2 Plan Anesthesia Plan: TIVA Discussion Discussed risks/options/alternatives of anesthesia and questions answered. Patient consents. Nursing pain assessment noted. Present: Family Member Attestation Statement Prior to the delivery of any anesthetic medication, I examined the patient, developed the plan, obtained the patient's consent and discussed the risk and benefits of the procedure with the patient/guardian. MARCI MORRISON CRNA May 18, 2016 12:52
[2016-05-18] MEDS ORDERED: PROPOFOL 500mg 50 ML IV ONE ×2 (12:54→14:05)
[2016-05-18] MEDS ORDERED: MIDAZOLAM 2mg/2ml INJECTION ONE (12:57)
[2016-05-18] MEDS ORDERED: GLYCOPYRROLATE 0.4mg/2ml INJECTION ONE (12:58)
[2016-05-18] MEDS ORDERED: ONDANSETRON 4mg/2ml INJECTION ONE (12:58)
[2016-05-18] MEDS ORDERED: ROCURONIUM 50mg/5ml INJECTION IV ONE (12:59)
[2016-05-18] MEDS ORDERED: FENTANYL 100mcg/2ml INJECTION ONE ×2 (13:01→14:02)
[2016-05-18] MEDS ORDERED: LEVOFLOXACIN 500 mg IVPB 500 MG in D5W 100 ML IV ONE (14:00)
[2016-05-18 14:39] VITALS: BP 97/55; PULSE 78; RESP 14; TEMP 97.6; O2SAT 98
[2016-05-18] MEDS ORDERED: LR 1,000 ML IV SCH (14:47)
[2016-05-18 14:55] VITALS: BP 93/55; PULSE 52; RESP 14; O2SAT 98
[2016-05-18] MEDS ORDERED: HYOSCYAMINE 0.125 MG SUBLINGUAL TABLET SL PRN (15:00)
[2016-05-18] MEDS ORDERED: ONDANSETRON 4mg/2ml INJECTION IV PRN (15:00)
[2016-05-18] MEDS ORDERED: KETOROLAC 30mg/ml INJECTION IV PRN (15:00)
[2016-05-18] MEDS ORDERED: HYDROCODONE/APAP 5 mg/325 mg TABLET PO PRN (15:00)
[2016-05-18] MEDS ORDERED: MORPHINE 10mg/ml vl INJECTION IV PRN (15:00)
[2016-05-18] MEDS ORDERED: PHENAZOPYRIDINE 95 MG TABLET PO PRN (15:00)
[2016-05-18 15:10] VITALS: BP 116/53; PULSE 48; RESP 16; O2SAT 99
[2016-05-18] MEDS ORDERED: HYDR-4246 PO (15:12)
[2016-05-18] MEDS ORDERED: PHEN95TA25 PO (15:12)
--- NOTE | 2016-05-18 15:23 | DI ---
Indication: ITS.REASON: BILAT RETROGRADES, LEFT STENT INSERTION PROCEDURE: RF RETROGRADE PYELOGRAM RIGHT: Encounter: Initial Comparison: None Findings: 15 fluoroscopic spot images are submitted for interpretation. Images show retrograde injection of contrast into the right renal collecting system. The calyces appear normal. There is suggestion of a filling defect in the mid to distal ureter which could be due to underfilling. Retrograde injection of contrast into the left ureter shows a filling defect in the distal portion with mild blunting of the calyces. A double-J stent is then placed on the left which projects in appropriate position. Impression: Fluoroscopy as above. Fluoroscopy time is 113 seconds. Fluoroscopy dose is 3990 mRad. .
[2016-05-18 15:25] VITALS: BP 111/67; PULSE 59; RESP 16; O2SAT 98
[2016-05-18 15:44] VITALS: BP 107/53; PULSE 54; RESP 14; TEMP 97.3; O2SAT 98
--- NOTE | 2016-05-18 16:08 | ANESPO ---
Post-Op Note Date 05/18/16 Time: 15:20 Status Pt Participated in Evaluation: Pt participated in person Vital Signs Date Time Temp Pulse Resp B/P Pulse Ox O2 Delivery O2 Flow Rate FiO2 05/18/16 15:44 97.3 54 14 107/53 98 Room Air Respiratory Function: Airway patent, Regular respirations Cardiovascular Function: Regular pulse Mental Status: Alert/oriented Pain Level Intensity: 0 Hydration: Taking po fluids Complications during Recovery None apparent Follow-Up Instructions Instructions Per Surgeon ZEB MUHAMMAD CRNA May 18, 2016 16:08
--- NOTE | 2016-05-19 11:47 | OPNOTEF ---
DATE OF PROCEDURE 05/18/2016 PREOPERATIVE DIAGNOSIS Left distal ureteral stone and hematuria. POSTOPERATIVE DIAGNOSIS Left distal ureteral stone and hematuria. OPERATION PERFORMED Cystoscopy and bilateral retrograde pyelograms. Left ureteroscopic holmium laser lithotripsy and stone retrieval. Cystoscopy and stent insertion. SURGEON Daniel Shoemaker MD ANESTHESIA General TIVA INDICATIONS Ms. White is a 31-year-old woman who suffers from intermittently symptomatic left distal ureteral stone with hematuria. She has been having symptoms on and off for over a year. CT scan confirmed the obstructing distal ureteral stone on the left side. The patient was brought in to have stone treated by ureteroscopic laser lithotripsy and stent insertion. DESCRIPTION OF PROCEDURE The patient was taken to the cystoscopy suite and, under intravenous anesthesia, she was placed in dorsal lithotomy position and prepped and draped in the usual fashion for a cystoscopy. Fluoroscopically, a calcification was seen in the distal left ureter, somewhat irregular in shape, just below the SI joint at the pelvic brim. A 21-Rwandan cystoscope was inserted. Bladder showed mild trabeculation but no tumor, foreign body or stone. Ureteral orifices were normal bilaterally in location and contour. Left ureteral orifice was then cannulated with 0.05 gauge flexible-tip guidewire and inserted into the kidney under fluoroscopy. The guidewire did go around the stone easily. We then inserted a 5-R[place]an open-ended ureteral catheter over the guidewire into the region of the proximal ureter. Guidewire was then removed and a small amount of contrast was injected under fluoroscopy and pull-out retrograde pyelogram was taken. There was minimal obstruction of the left kidney. The calcification seen in the distal ureter below the SI joint was indeed stone in the ureter. No other abnormality was noted. Guidewire was then re-placed into the left renal system and the cystoscope removed. Over this guidewire, a 7-Rwandan rigid ureteroscope was loaded and inserted into the bladder and then into the distal ureter. Under fluoroscopic guidance and also under direct vision, the ureteroscope was advanced until a stone was seen. The stone was quite yellow and irregular shaped. When stone was visualized, the guidewire was retrieved. Using 364-micron holmium laser fiber the stone was fragmented into several pieces under direct vision. The laser power used was 6.4 to 10 briones. After the fragmentation, the laser fiber was removed. Using Graspit 2.6 R[place]an stone basket, individual stones were engaged and retrieved. Only tiny fragments were left in the ureter and these were too small to be engaged into the basket. The ureteroscope was advanced [facility] up the ureter and did not see any further stone. A guidewire was left in and the ureteroscope removed over the guidewire. Over this guidewire, a flexible high-definition 7-[place]an scope was loaded and advanced into the ureter and, under direct vision, placed the high-definition flexible scope into the renal pelvis. Each individual collecting system, i.e. caliceal systems, were inspected and found no evidence of stone or any other abnormality. Therefore the flexible ureteroscope was removed and there was no significant stone remaining in the ureter. A cystoscope was then back loaded into the bladder over the guidewire and a 6-Rwandan x 26 cm double pigtail stent was placed into the left renal system under fluoroscopic guidance. There was a stone left in the bladder which was also grasped with a grasping forceps and retrieved. Right retrograde pyelogram was taken with an open 5-Rwandan ureteral catheter under fluoroscopy and found it to be normal. Bladder was emptied out and the cystoscope removed. The patient tolerated the procedure well and was taken to the recovery area in stable condition. EDUARDO
== END 2016-05-18 15:44 | disposition home or self-care (01) ==
LOC: SCU 10:59
PROVIDERS: ATTEND Specialist
DX: N20.1 Calculus of ureter (principal); R31.9 Hematuria, unspecified; E66.9 Obesity, unspecified; Z68.34 Body mass index [BMI] 34.0-34.9, adult; Z87.442 Personal history of urinary calculi
CPT/HCPCS: 36415; 52356; 74420; 80048; 82365; 84703; 85025; C2617; J1580; J1956; J2250; J2405; J3010; J7060; J7120; Q9967